=== PATIENT | male | born 1990 | race Caucasian/White ===

== ENCOUNTER 2023-04-30 15:09 | Emergency (ER) | payer SELFPAY ==
[2023-04-30] VITALS (7 sets, daily range): BP systolic 137–145; BP diastolic 79–92; PULSE 90–101; RESP 20; TEMP 36.8; O2SAT 98–100
[2023-04-30 15:43] LABS: Basophils Percent Auto 0.2 % (0.2-1.2); Hematocrit 45.7 % (42.0-52.0); Hemoglobin 15.8 g/dL (14.0-18.0); Immature Granulocyte Absolute 0.04 K/mm3 (0.00-0.031); Immature Granulocyte Percent A 0.3 % (0-0.5); Lymphocytes Percent Auto 6.2 % (18.3-44.2); Mean Corpuscular HGB Conc 34.6 g/dl (32-36); Mean Corpuscular Hemoglobin 28.5 pg (26-34); Mean Corpuscular Volume 82.3 fl (80-100); Mean Platelet Volume 10.2 fl (7.4-10.4); Monocytes Absolute Auto 0.4 K/mm3 (0.1-0.6); Monocytes Percent Auto 2.7 % (2.6-8.5); Neutrophils Absolute Auto 11.7 K/mm3 (1.3-6.7); Neutrophils Percent Auto 90.6 % (45.5-73.1); Platelet Count Result 115 k/mm3 (150-375); Red Blood Count 5.55 M/mm3 (4.6-6.20); Red Cell Distribution Width 12.9 % (11.5-14.5)
[2023-04-30 15:53] LABS: Alanine Aminotransferase 51 U/L (6-50); Alkaline Phosphatase 45 U/L (38-126); Anion Gap 14 mmol/L (8-16); Aspartate Amino Transferase 35 U/L (17-59); Bilirubin,Total 1.2 mg/dL (0.2-1.3); Blood Urea Nitrogen 11 mg/dL (9-20); Carbon Dioxide 24 mmol/L (22-30); Chloride 103 mmol/L (98-107); Estimated CRCL calculation 132 ml/min; Estimated Glomerular Filt Rate > 60; Glucose 123 mg/dL (65-110); Lipase 62 U/L (23-300); Potassium 4.5 mmol/L (3.4-5.0); Sodium 141 mmol/L (137-145)
--- NOTE | 2023-04-30 17:07 | ED.NAVMDI ---
HPI - Nausea/Vomiting/Diarrhea General Chief complaint: Nausea/Vomiting/Diarrhea Stated complaint: vomit Time Seen by Provider: 04/30/23 17:06 Source: patient and family (mother) Mode of arrival: ambulatory Limitations: no limitations History of Present Illness HPI Narrative: patient is a very pleasant 32-year-old male with a past medical history of vertigo who presents to the emergency department today ambulatory with mother for evaluation of having dizziness, ringing in the left ear, nausea, vomiting, and vertigo. He has not had this for many years. He had a history of multiple ear issues the child. Medication he had a home was . He denies any chest pain, shortness breast abdominal pain, diarrhea, fever, chills, vision changes. Related Data Allergies Allergy/AdvReac Type Severity Reaction Status Date / Time lorazepam [From Ativan] Allergy Unknown Verified 04/30/23 15:34 paroxetine [From Paxil] AdvReac Unknown Verified 04/30/23 15:34 Review of Systems Review of Systems: CONSTITUTIONAL: Denies fever, chills, or sweats. EYES: Denies visual changes, redness, or discharge. ENT: Denies rhinorrhea, congestion, sore throat. +left ear ringing CARDIOVASCULAR: Denies chest pain, palpitations, or edema. RESPIRATORY: Denies cough or dyspnea. GASTROINTESTINAL: +Nausea and vomiting. Denies abdominal pain, diarrhea. +acid reflux GENITOURINARY: Denies dysuria or hematuria. SKIN: Denies rash or itching. MUSCULOSKELETAL: Denies back pain, joint pain, or myalgia. NEUROLOGIC: +dizziness. Denies numbness, or weakness. PSYCHIATRIC: Denies anxiety or depression. All systems reviewed & are unremarkable except as noted in HPI and below Exam Narrative: GENERAL: Well-appearing, well-nourished, and in no acute distress. HEAD: Normocephalic, atraumatic. EYES: PERRLA and EOMI. ENT: Nares clear, no rhinorrhea or epistaxis. Mucous membranes moist. bilateral ears with no erythema/bulging TM or any acute perforation. there is significant scarring to bilateral TM and abnormality (Chronic) hx of perforation as child NECK: Supple. CHEST: Clear to auscultation. No respiratory distress. HEART: Regular rate and rhythm. No murmur heard. Normal peripheral pulses. ABDOMEN: Soft, nontender, nondistended, normal active bowel sounds. EXTREMITIES: Normal range of motion. No edema. SKIN: Warm, dry, no rash. NEURO: No focal deficits. Alert and oriented x3. CN II-XII grossly intact. UE and LE distal pulses, sensation, cap refill, temperature, patellar reflex and strength intact and equal bilaterally.?steady gait. negative Romberg PSYCH: Normal mood and affect. Course Reevaluation(s) Reevaluation #1: patient sitting up on the edge of bed, feeling much better ready to go home Date: 04/30/23 Time: 18:42 Vital Signs Vital signs: Vital Signs Temperature 98.3 F 04/30/23 15:31 Pulse Rate 90 04/30/23 15:31 Respiratory Rate 20 04/30/23 15:31 Blood Pressure 137/88 04/30/23 15:31 Pulse Oximetry 98 04/30/23 15:31 Oxygen Delivery Room Air 04/30/23 15:31 Temperature 98.3 F 04/30/23 15:31 Pulse Rate 97 04/30/23 18:34 Respiratory Rate 20 04/30/23 15:31 Blood Pressure 141/79 H 04/30/23 18:34 Pulse Oximetry 100 04/30/23 18:01 Oxygen Delivery Room Air 04/30/23 15:31 MDM - Nausea/Vomiting/Diarrhea MDM Narrative Medical decision making narrative: Patient presents for n/v/dizziness hx of ear issues and vertigo. patient's labs are all stable, given medication while here including fluids, Antivert, Zofran and Pepcid. He was feeling much better on re-examination. We discussed ways to deal with vertigo, nausea, vomiting. No need for further workup at this time. He is oriented x4, no neurological deficits. Symptoms had resolved on re-examination prior to discharge. Patient is nontoxic in appearance. Stable re-evaluation exam just before discharge. Patient in no acute distress. Vitals within normal limits. Discussed
[2023-04-30] MEDS: ONDANSETRON INJ 4 MG/2 ML VIAL IV PUSH (17:17)
[2023-04-30] MEDS: FAMOTIDINE 20 MG/2 ML VIAL IV PUSH (17:17)
[2023-04-30] MEDS: MECLIZINE HCL 25 MG TABLET PO (17:17)
[2023-04-30] MEDS: SODIUM CHLORIDE 0.9% IV 1,000 ML 999 ML IV CONT (17:17)
[2023-04-30 19:23] LABS: Appearance Urine Cloudy (Clear); Bacteria Urine None Seen /hpf; Bilirubin Urine Negative (Negative); Blood Urine Negative (Negative); Color Urine Dark Yellow (Yellow); Glucose Urine UA Negative (Negative); Ketones Urine Trace mg/dL (Negative); Leukocyte Esterase Ur Trace LEU/UL (Negative); Need Manual Microscopic Reviewed; Nitrate Urine Negative (Negative); Protein Urine 1+ mg/dL (Negative); RBC Urine 0-2 /hpf (0-2); Specific Grav Ur 1.025 (1.001-1.035); Squamous Epithelial Cell Urine None seen /hpf (Few); Urobilinogen Urine 0.2 mg/dL (<2.0); WBC Urine 0-5 /hpf; pH Urine 5.5 (5.0-9.0)
[2023-04-30 19:26] LABS: Add Urine Microscopic? YES
== END 2023-04-30 19:06 | disposition home or self-care (01) ==
PROVIDERS: Emergency Medicine; Emergency Provider Nurse Practitioner
DX: R42 Dizziness and giddiness (principal); R11.2 Nausea with vomiting, unspecified
CPT/HCPCS: 36415; 80053; 81001; 83690; 85025; 96361; 96374; 96375; 99284; A9270; J2405; J7030